=== PATIENT | female | born 1955 | race Caucasian/White ===

== ENCOUNTER → 2023-11-20 07:26 | Outpatient (REF) | payer MEDICARE, SELFPAY | LOC: RCS 07:26 | PROVIDERS: ATTENDING PHYSICIAN Nurse Practitioner; FAMILY PHYSICIAN Family Medicine | DX: R07.89 Other chest pain (principal) | CPT/HCPCS: 93306 ==

== ENCOUNTER → 2024-11-12 11:44 | Outpatient (REF) | payer MEDICARE, SELFPAY ==
[2024-11-12 12:30] VITALS: BP 175/94; BP_SYST 18
== END ==
LOC: RADI 11:44
PROVIDERS: ATTENDING PHYSICIAN Nurse Practitioner Family; FAMILY PHYSICIAN Family Medicine
DX: E04.1 Nontoxic single thyroid nodule (principal)
CPT/HCPCS: 10005; 88173